=== PATIENT | male | born 1955 | race Caucasian/White ===

== ENCOUNTER 2018-03-04 08:25 | Inpatient (IN) | payer OTHER ==
[~2018-03-04] VITALS: Ht 180.3 cm; Wt 89.8 kg
[2018-03-04 08:33] VITALS: BP 115/67
[2018-03-04] MEDS ORDERED: CYCLOBENZAPRINE5 MG PO (08:38)
[2018-03-04] MEDS ORDERED: TUMS PO (08:39)
[2018-03-04 09:06] LABS: HEMATOCRIT 38.2 % (42.0-52.0); HEMOGLOBIN 13.3 gm/dL (14.0-18.0); MCH 32.2 pg (26.0-34.0); MCHC 34.8 g/dL (28.0-37.0); MCV 92.5 fL (80.0-100.0); MPV 8.9 fl. (7.2-11.1); NUCLEATED RBCS 0 /100WBC; PLATELET COUNT* 203 thou/uL (150-400); RBC 4.13 mil/uL (4.50-6.00); RDW-CV 13.4 % (10.5-14.5); WBC 13.3 thou/uL (4.0-11.0)
[2018-03-04 09:13] LABS: CHLORIDE 97 mmol/L (98-107); POTASSIUM 3.4 mmol/L (3.5-5.1); SODIUM 133 mmol/L (136-145)
[2018-03-04 09:24] LABS: APTT 33.8 Seconds (25.0-31.3); INR 1.1; PROTIME 11.1 Seconds (9.20-11.50)
[2018-03-04 09:27] LABS: ANION GAP 17 mmol/L (7-16); BUN 46 mg/dL (7-18); CALCIUM 9.2 mg/dL (8.5-10.1); CO2 19 mmol/L (21-32); CREATININE 2.8 mg/dL (0.6-1.3); GLUCOSE 113 mg/dL (70-99)
[2018-03-04 09:33] LABS: ALBUMIN 2.5 g/dL (3.4-5.0); ALKALINE PHOSPHATASE 86 U/L (46-116); NT-PRO BRAIN NAT PEPTIDE 1125 pg/mL (<300); SGOT 44 U/L (15-37); SGPT 45 U/L (30-65); TOTAL BILIRUBIN 0.7 mg/dL (<0.1-1.0); TOTAL PROTEIN 8.6 g/dL (6.4-8.2); TROPONIN-I LEVEL <0.06 ng/mL (<0.06)
[2018-03-04 09:56] LABS: ABSOLUTE BASOPHILS 0.1 thou/uL (0.0-0.2); ABSOLUTE LYMPHOCYTES 1.3 thou/uL (0.8-5.3); ABSOLUTE MONOCYTES 0.5 thou/uL (0.0-1.2); ABSOLUTE NEUTROPHILS 11.3 thou/uL (1.6-8.1); METAMYELOCYTES 1 %
[2018-03-04 09:57] LABS: GIANT PLATELETS OCCASIONAL; LARGE PLATELETS RARE; PLATELET ESTIMATE ADEQUATE
[2018-03-04 09:58] LABS: MICROCYTES Occasional
[2018-03-04 09:59] LABS: BURR CELLS Occasional; POIKILOCYTOSIS Occasional
[2018-03-04 10:00] LABS: TOXIC GRANULATION 2+
[2018-03-04 13:56] VITALS: BP 130/77
[2018-03-04 14:20] VITALS: BP 147/82
--- NOTE | 2018-03-04 15:05 | EKG ---
[place] [address] ELECTROCARDIOGRAM REPORT Name: LUZ FLORES JR Room: [address] ADM IN [facility].#: [id number] Admission: 03/04/18 Attend Phys: Jenaro Tenorio MD Discharge: Date of : 51 Report #: [id number] THIS REPORT FOR: //name// [facility] ED Test Date: 2018-03-04 Test Time: 09:07:05 Pat Name: LUZ FLORES Department: Room: [facility] Gender: Transcribing Operator Head: Blanca HOWARD : 1955 Requested By: Gato Harris Order Number: [id number] MD: Festus Villarreal Measurements Intervals [place] Rate: 91 P: 34 PA: 149 QRS: 13 QRSD: 98 T: 20 QT: 459 QTc: 565 Interpretive Statements Sinus rhythm Prolonged QT interval No previous ECG available for comparison Electronically Signed On 03-04-2018 15:05:38 BLOWING WEASAND by Festus Villarreal [email or web address] <ELECTRONICALLY SIGNED> By: Festus Villarreal MD, [facility] 03/04/18 1505 6 6 Festus Villarreal MD, FACC /EPI
[2018-03-04 16:01] LABS: INFLUENZA A ANTIGEN None Detected (None Detect); INFLUENZA B ANTIGEN None Detected (None Detect)
[2018-03-04 19:35] VITALS: BP 126/71
[2018-03-05] VITALS (25 sets, daily range): BP systolic 113–150; BP diastolic 59–77
[2018-03-05 05:18] LABS: ABSOLUTE LYMPHOCYTES 0.4 thou/uL (0.8-5.3); ABSOLUTE MONOCYTES 0.4 thou/uL (0.0-1.2); BASOPHILS 0.1 %; LYMPHOCYTES 3.5 %; MCH 31.7 pg (26.0-34.0); MCHC 34.4 g/dL (28.0-37.0); MCV 92.3 fL (80.0-100.0); MONOCYTES 3.4 %; MPV 8.5 fl. (7.2-11.1); NUCLEATED RBCS 0 /100WBC; PLATELET COUNT* 214 thou/uL (150-400); RBC 3.57 mil/uL (4.50-6.00); RDW-CV 13.6 % (10.5-14.5); WBC 10.8 thou/uL (4.0-11.0)
[2018-03-05 06:15] LABS: HEMOGLOBIN 11.3 gm/dL (14.0-18.0)
[2018-03-05 06:25] LABS: CREATININE 1.4 mg/dL (0.6-1.3)
[2018-03-05 06:26] LABS: POTASSIUM 2.9 mmol/L (3.5-5.1)
[2018-03-05 06:34] LABS: CALCIUM 8.4 mg/dL (8.5-10.1)
[2018-03-05 15:06] LABS: IgA 25 mg/dL (61-437); IgG 1364 mg/dL (700-1600); IgM 50 mg/dL (20-172)
[2018-03-06] VITALS: BP 119/70
[2018-03-06 04:00] VITALS: BP 129/72
[2018-03-06 08:00] VITALS: BP 138/76
[2018-03-06 08:37] LABS: HEMATOCRIT 33.3 % (42.0-52.0); HEMOGLOBIN 11.3 gm/dL (14.0-18.0); MCH 31.6 pg (26.0-34.0); MCHC 33.9 g/dL (28.0-37.0); MCV 93.4 fL (80.0-100.0); MPV 9.2 fl. (7.2-11.1); NUCLEATED RBCS 0 /100WBC; PLATELET COUNT* 252 thou/uL (150-400); RBC 3.56 mil/uL (4.50-6.00); RDW-CV 13.9 % (10.5-14.5); WBC 12.4 thou/uL (4.0-11.0)
[2018-03-06 09:01] LABS: CREATININE 1.2 mg/dL (0.6-1.3); POTASSIUM 4.1 mmol/L (3.5-5.1)
[2018-03-06 09:40] LABS: ABSOLUTE NEUTROPHILS 10.4 thou/uL (1.6-8.1); PLATELET ESTIMATE ADEQUATE
[2018-03-06 09:41] LABS: ANISOCYTOSIS 1+; HYPOCHROMASIA Occasional; POIKILOCYTOSIS 1+; TOXIC GRANULATION 1+
[2018-03-06 12:28] VITALS: BP 145/84
[2018-03-06 16:01] VITALS: BP 150/67
[2018-03-06 20:00] VITALS: BP 139/74
[2018-03-07 04:00] VITALS: BP 160/88
[2018-03-07 05:11] LABS: ABSOLUTE LYMPHOCYTES 1.1 thou/uL (0.8-5.3); ABSOLUTE MONOCYTES 1.2 thou/uL (0.0-1.2); ABSOLUTE NEUTROPHILS 7.9 thou/uL (1.6-8.1); BASOPHILS 0.3 %; EOSINOPHILS 0.3 %; HEMATOCRIT 33.9 % (42.0-52.0); HEMOGLOBIN 11.5 gm/dL (14.0-18.0); LYMPHOCYTES 10.6 %; MCH 31.2 pg (26.0-34.0); MCHC 33.9 g/dL (28.0-37.0); MPV 7.7 fl. (7.2-11.1); NUCLEATED RBCS 0 /100WBC; PLATELET COUNT* 303 thou/uL (150-400); POLYS 76.8 %; RBC 3.69 mil/uL (4.50-6.00); RDW-CV 13.6 % (10.5-14.5); WBC 10.3 thou/uL (4.0-11.0)
[2018-03-07 05:48] LABS: ALBUMIN 1.8 g/dL (3.4-5.0); CALCIUM 7.8 mg/dL (8.5-10.1); CREATININE 1.1 mg/dL (0.6-1.3); POTASSIUM 3.3 mmol/L (3.5-5.1); TOTAL BILIRUBIN 0.4 mg/dL (<0.1-1.0)
[2018-03-07 08:20] VITALS: BP 147/79
[2018-03-07 11:50] VITALS: BP 128/75
[2018-03-07 15:18] VITALS: BP 138/75
[2018-03-07 20:00] VITALS: BP 140/78
[2018-03-08] VITALS: BP 154/81
[2018-03-08 07:31] LABS: ABSOLUTE EOSINOPHILS 0.1 thou/uL (0.0-0.7); ABSOLUTE MONOCYTES 0.9 thou/uL (0.0-1.2); BASOPHILS 0.2 %; EOSINOPHILS 1.2 %; HEMATOCRIT 33.4 % (42.0-52.0); HEMOGLOBIN 11.3 gm/dL (14.0-18.0); LYMPHOCYTES 10.2 %; MCH 31.3 pg (26.0-34.0); MCHC 33.9 g/dL (28.0-37.0); MCV 92.2 fL (80.0-100.0); MONOCYTES 8.7 %; MPV 7.9 fl. (7.2-11.1); NUCLEATED RBCS 0 /100WBC; PLATELET COUNT* 331 thou/uL (150-400); POLYS 79.7 %; RBC 3.62 mil/uL (4.50-6.00); RDW-CV 13.9 % (10.5-14.5); WBC 10.1 thou/uL (4.0-11.0)
[2018-03-08 07:52] LABS: ALBUMIN 1.8 g/dL (3.4-5.0); CALCIUM 8.3 mg/dL (8.5-10.1); POTASSIUM 3.7 mmol/L (3.5-5.1); TOTAL BILIRUBIN 0.5 mg/dL (<0.1-1.0)
[2018-03-08 07:55] VITALS: BP 142/87
[2018-03-08 13:07] LABS: KAPPA FREE LIGHT CHAINS 17.1 mg/L (3.3-19.4); LAMBDA FREE LIGHT CHAINS 8.2 mg/L (5.7-26.3)
[2018-03-08 15:44] VITALS: BP 129/78
[2018-03-08 17:07] LABS: GLOBULIN TOTAL 3.7 g/dL (2.2-3.9)
[2018-03-08 20:00] VITALS: BP 137/78
[2018-03-09 00:44] VITALS: BP 140/80
[2018-03-09 05:22] LABS: ABSOLUTE EOSINOPHILS 0.2 thou/uL (0.0-0.7); ABSOLUTE LYMPHOCYTES 0.9 thou/uL (0.8-5.3); ABSOLUTE MONOCYTES 0.6 thou/uL (0.0-1.2); BASOPHILS 0.2 %; HEMOGLOBIN 12.3 gm/dL (14.0-18.0); LYMPHOCYTES 9.2 %; MCH 31.8 pg (26.0-34.0); MCHC 34.1 g/dL (28.0-37.0); MCV 93.1 fL (80.0-100.0); MONOCYTES 6.5 %; MPV 7.8 fl. (7.2-11.1); NUCLEATED RBCS 0 /100WBC; PLATELET COUNT* 359 thou/uL (150-400); POLYS 82.1 %; RBC 3.87 mil/uL (4.50-6.00); RDW-CV 13.6 % (10.5-14.5); WBC 9.8 thou/uL (4.0-11.0)
[2018-03-09 05:45] LABS: CALCIUM 8.5 mg/dL (8.5-10.1); CREATININE 1.1 mg/dL (0.6-1.3); POTASSIUM 4.2 mmol/L (3.5-5.1); TOTAL BILIRUBIN 0.4 mg/dL (<0.1-1.0); TOTAL PROTEIN 6.4 g/dL (6.4-8.2)
[2018-03-09 08:05] VITALS: BP 130/83
[2018-03-09 10:38] VITALS: BP 130/83
[2018-03-09] MEDS ORDERED: MUCINEX1200 MG PO (10:45)
[2018-03-09] MEDS ORDERED: LEVAQUIN 750 M750 MG PO (10:46)
[2018-03-09] MEDS ORDERED: NORCO 5-325 TA1 EACH PO (10:48)
[2018-03-09] MEDS ORDERED: VENTOLIN HFA 1818 GM INH (10:49)
--- NOTE | 2018-03-10 15:06 | PATH ---
[address] [address] PATHOLOGY RPT PROCEDURE Name: EARL WALLS JR Room: [address] IN M.R.#: [id number] Admission: 03/04/18 Date of : 51 Discharge: 03/09/18 Report #: [id number] Path Case #: [id number] [facility] Accession Number: [id number] . 01 Material submitted: . RIGHT CHEST WALL/RIB LESION . 02 Diagnosis: Bone and soft tissue, "right chest wall/rib lesion": - Fibrosis and chronic inflammation. See comment. MBR/03/08/2018 . 02 Comment: This case is also reviewed by Dr. Aracelis Veliz. . Immunoperoxidase stains AE1/AE3 will also be done and additional report will follow. . (MARIO:reza; 03/08/2018) . 02 Addendum: . The immunoperoxidase stain AE1/AE3 is negative. The rest of the diagnosis remains the same. (SHA:pit 03/10/2018) . Professional services performed by [facility] at [facility], [address] [place] [address]. Technical services performed at [address] [place] [address], [address], [place] [address]. . . . . Special studies report received from [facility], [address] [place] [address], [address], [place], [address], on case [id number], labeled with their number [id number], dated 03/10/2018. . Flow Cytometry: Hematologic Neoplasia Assessment . Clinical History Lytic lesion, ninth rib . Indication for Study Evaluation for non-Hodgkin lymphoma vs. myeloma . Specimen Rib Lesion, Right Chest Wall . [facility] [address] [address] PATHOLOGY RPT PROCEDURE Name: EARL WALLS Room: [address]#: [id number] Admission: 03/04/18 Date of : 51 Discharge: 03/09/18 Report #: [id number] Path Case #: [id number] 77% (7AAD exclusion) . Interpretation Rib Lesion, Right Chest Wall: Abnormal/monotypic plasma cell population (2.4% of sample), consistent with a plasma cell neoplastic process . Comments Plasma cells are typically underrepresented by flow cytometry. Correlation with available clinical, laboratory, and morphologic data is recommended. . Populations Analyzed Myeloid Blasts: 0.7% No significant immunophenotypic abnormalities Lymphocytes: 1% B-cells: 0.7%, polytypic/polyclonal sIg light chain pattern T-cells: no significant abnormalities of the markers tested CD4+ T-cells: 0.5% (including 0.0% CD57+ cells) CD8+ T-cells: 0.3% (including 0.2% CD57+ cells) CD4:CD8: 1.7 NK cells: 0.1% Neutrophilic Cells: 85% No significant abnormalities of the markers tested Monocytic Cells: 4% No significant abnormalities of the markers tested Basophils: 0.1% No relative increase Plasma Cells: 2.4% CD45-/+, CD19-, CD20-/+, CD38+ (bright), CD56+, CD117-, HLA DR-, cIg kappa+ Hematogones: 0.3% Normal B-cell precursors Remaining CD45 6% No significant reactivity with the markers Negative Events/ tested (may represent unlysed red blood Debris: cells, erythroid precursors, platelets, debris, etc.)(erythroid precursors may be underrepresented due to sample lysis/processing) . Morphologic Evaluation A slide was reviewed for personnel quality assurance auditor purposes only. . Specimen Description Total Cell Yield: 0.52 x 10 and 6 . Reagent(s) Used CD2, CD3, CD4, CD5, CD7, CD8, CD10, CD11b, CD13, CD14, CD16, CD19, CD20, CD33, CD34, CD38, CD45, CD56, CD57, CD64, CD117, HLA-DR, kappa, lambda, CD138, CytoKappa, CytoLambda . at [facility] [place] [address] PATHOLOGY RPT PROCEDURE Name: EARL WALLS JR Room: [address] [place] M.R.#: [id number] Admission: 03/04/18 Date of : 51 Discharge: 03/09/18 Report #: [id number] Path Case #: [id number] Ephraim Nava MD Pathologist . . Intended Use Flow cytometry is optimally used to immunophenotypically characterize abnormal populations when they are detected. Negative flow cytometry results do not exclude lymphoma or neoplasia. Possible false negative flow cytometry results may occur in, but are not limited to, the following: neoplastic cells in Hodgkin lymphoma are not typically adequately represented by routine clinical flow cytometry; neoplastic cells may be lost or inadequately represented due to degeneration, sample processing, sampling artifact, or patchy involvement; plasma cells are typically underrepresented by flow cytometry; immature cells/blasts may be underrepresented due to hemodilution; myeloproliferative disorders and low grade myelodysplasia may not have immunophenotypic abnormalities or increased blasts. Correlation with all available clinical, laboratory, and morphologic data is always necessary to assess for the possibility of false negative flow cytometry results and to establish a diagnosis. Each marker in this analysis was used to assess for potential antigenic abnormalities or to evaluate detected abnormalities. . Disclaimer(s) This test was performed at [facility], [place] [facility] [place]. at [address] [place] [address], [phone] - [employer]: Hermann Berg MD. [employer] is a business unit of [employer] a wholly-owned subsidiary of [employer]. . Any image or images that accompany this report are aircraft sales representative images only and should not be used to render a diagnosis. . This test was developed and its performance characteristics determined by [employer]. It has not been cleared or approved by the Food and Drug Administration (FDA). The FDA has determined that such clearance or approval is not necessary. . For inquiries, the physician may contact Lab: [phone] . A complete copy of the report is on file. . Professional services performed by [facility] at [address], [place] [address]. Technical services performed by [facility], [place] [facility] [place]. at [address], [place] [address]. . (AMJ 03/10/2018) [place] [address] PATHOLOGY RPT PROCEDURE Name: EARL WALLS JR Room: [address]#: [id number] Admission: 03/04/18 Date of : 51 Discharge: 03/09/18 Report #: [id number] Path Case #: [id number] AZJ/03/10/2018 Addendum Electronically Signed by Adrian Suazo MD. Pathologist . 02 Electronically signed: . Adrian Suazo MD, Pathologist NPI- [id number] . 01 Gross description: . The specimen is received in formalin, labeled "Earl Walls JR, rib wall/chest lesion BX", are multiple lezama-brown soft tissue and clots measuring 1.0 x 1.0 x 0.2 cm in aggregate. The specimen is entirely submitted in A1. Also received is an RPMI tube labeled with patient name and rib lesion/chest wall", consist of two fragments of cespedes-white to hemorrhagic tissue. This is sent for additional studies. (SWS; 03/05/2018) SHS/SHS . 02 Pathologist provided ICD-10: M79.89 . 02 CPT . 709497, Z09414 Specimen Comment: A courtesy copy of this report has been sent to Specimen Comment: [phone], , . Specimen Comment: Report sent to ,DR MASTERSON / DR FITZPATRICK Specimen Comment: A duplicate report has been generated due to demographic updates. Performed at: 01 [facility] [id number] [facility] [address], [place], [place] [id number] MD Kobe Mott MD Phone: [phone] Performed at: 02 [facility] [address], [place], [place] [id number] MD Joseph Lee MD Phone: [phone]
== END 2018-03-09 14:03 | disposition home or self-care (01) | DRG 853 ==
LOC: M.ERS 08:25 → M.2W 09:52 → M.TBA-ER 09:52 → M.2W 14:26
PROVIDERS: Family Medicine; Internal Medicine; Specialist; ADMIT Internal Medicine
PROC: 0PB13ZX Excision of 1 to 2 Ribs, Percutaneous Approach, Diagnostic (ICD-10-PCS; principal; 2018-03-05)
PROC: 0WB83ZX Excision of Chest Wall, Percutaneous Approach, Diagnostic (ICD-10-PCS; principal; 2018-03-05)
DX: A40.3 Sepsis due to Streptococcus pneumoniae (principal); N17.0 Acute kidney failure with tubular necrosis; J18.1 Lobar pneumonia, unspecified organism; E87.2 Acidosis; E87.6 Hypokalemia; M89.8X8 Other specified disorders of bone, other site; Z53.29 Procedure and treatment not carried out because of patient's decision for other reasons; Z79.899 Other long term (current) drug therapy

== ENCOUNTER 2020-07-21 16:22 | Emergency (ER) | payer MEDICARE ==
[~2020-07-21] VITALS: Ht 177.8 cm; Wt 83.9 kg
[~2020-07-21 16:22] MED LIST: CYCLOBENZAPRINE5 MG PO; LEVAQUIN 750 M750 MG PO; MUCINEX1200 MG PO; NORCO 5-325 TA1 EACH PO; TUMS PO; VENTOLIN HFA 1818 GM INH
[2020-07-21] MEDS ORDERED: REVLIMID5 MG PO (16:34)
[2020-07-21 17:15] VITALS: BP 124/85
== END 2020-07-21 17:15 | disposition home or self-care (01) ==
LOC: M.ERS 16:22
DX: S01.81XA Laceration without foreign body of other part of head, initial encounter (principal); W22.8XXA Striking against or struck by other objects, initial encounter; Y93.89 Activity, other specified; Y92.89 Other specified places as the place of occurrence of the external cause; Y99.8 Other external cause status